=== PATIENT | male | born 1995 | race Caucasian/White ===

== ENCOUNTER 2019-11-14 19:29 | Emergency (ER) | payer OTHER ==
[~2019-11-14] VITALS: Ht 180.3 cm; Wt 90.7 kg
[2019-11-14 19:35] VITALS: Ht 180.3 cm; Wt 90.7 kg
[2019-11-14 20:55] LABS: RED CELL DISTRIBUTION WIDTH 13.6 % (11.5-14.5)
[2019-11-14 21:05] LABS: PLATELET COUNT 128 x10^3mcL (130-400)
[2019-11-14 21:26] LABS: BILIRUBIN TOTAL 0.4 mg/dL (0.20-1.00); CALCIUM 8.2 mg/dL (8.5-10.1); CARBON DIOXIDE 30.2 mmol/L (21-32); POTASSIUM SERUM 4.9 mmol/L (3.5-5.1); TOTAL PROTEIN, SERUM 6.4 g/dL (6.4-8.2)
[2019-11-14 21:29] LABS: ALBUMIN 2.7 g/dL (3.4-5.0); CREATININE SERUM 12.3 mg/dL (0.7-1.3)
[2019-11-14 21:43] LABS: MONOCYTE 4 % (0-7); SEGMENTED NEUTROPHILS 64 % (37-75)
[2019-11-14 21:44] LABS: BAND NEUTROPHIL 6 % (0-10); BASOPHIL 0 % (0-2); rbc morphology (normal/abnorm) ABNORMAL (NORMAL)
[2019-11-14 22:40] VITALS: BP 188/92
== END 2019-11-14 22:35 | disposition home or self-care (01) ==
LOC: ED 19:29
PROVIDERS: Emergency Medicine
DX: M32.9 Systemic lupus erythematosus, unspecified (principal)
CPT/HCPCS: J2270